=== PATIENT | female | born 1980 | race Caucasian/White ===

== ENCOUNTER 2018-02-12 09:53 | Emergency (ER) | payer BC, OTHER ==
[~2018-02-12] VITALS: Ht 177.8 cm; Wt 81.7 kg
[2018-02-12 10:03] VITALS: BP 115/53
[2018-02-12] MEDS ORDERED: DIFLUCAN200 MG PO ×2 (10:07→10:26)
[2018-02-12] MEDS ORDERED: PREDNISONE50 MG PO (10:33)
== END 2018-02-12 10:41 | disposition home or self-care (01) ==
LOC: ER 09:53
DX: B35.4 Tinea corporis (principal); Z88.8 Allergy status to other drugs, medicaments and biological substances; Z87.891 Personal history of nicotine dependence

== ENCOUNTER 2019-07-17 22:23 | Emergency (ER) | payer BC, OTHER ==
[~2019-07-17] VITALS: Ht 177.8 cm; Wt 81.7 kg
[~2019-07-17 22:23] MED LIST: DIFLUCAN200 MG PO; PREDNISONE50 MG PO
[2019-07-17 22:30] VITALS: BP 115/74
[2019-07-17] MEDS ORDERED: NAPROSYN500 MG PO (23:02)
== END 2019-07-17 23:18 | disposition home or self-care (01) ==
LOC: ER 22:23
DX: S92.511A Displaced fracture of proximal phalanx of right lesser toe(s), initial encounter for closed fracture (principal); Z88.8 Allergy status to other drugs, medicaments and biological substances; Z87.891 Personal history of nicotine dependence; W22.8XXA Striking against or struck by other objects, initial encounter; Y92.89 Other specified places as the place of occurrence of the external cause; Y93.89 Activity, other specified; Y99.8 Other external cause status

== ENCOUNTER 2020-06-12 05:57 | Emergency (ER) | payer OTHER ==
[~2020-06-12] VITALS: Ht 177.8 cm; Wt 81.7 kg
[~2020-06-12 05:57] MED LIST changes: +NAPROSYN500 MG PO
[2020-06-12] MEDS ORDERED: ZYRTEC10 M5 PO (06:04)
[2020-06-12] MEDS ORDERED: AMOXICILLIN500 M1 PO (07:59)
[2020-06-12] MEDS ORDERED: MOBIC15 MG PO (07:59)
[2020-06-12 08:41] VITALS: BP 125/75
== END 2020-06-12 08:41 | disposition home or self-care (01) ==
LOC: ER 05:57
DX: J02.0 Streptococcal pharyngitis (principal); Z79.899 Other long term (current) drug therapy; Z87.891 Personal history of nicotine dependence; Z88.8 Allergy status to other drugs, medicaments and biological substances; Z20.828 Contact with and (suspected) exposure to other viral communicable diseases